=== PATIENT | female | born 1960 | race Hispanic/Latino ===

== ENCOUNTER 2016-09-06 07:50 | Emergency (ER) | payer OTHER ==
[2016-09-06 07:50] VITALS: BMI 25.7
[2016-09-06 08:08] VITALS: RESP 18; TEMP 97.7
[2016-09-06 08:18] LABS: ADD MANUAL DIFF? NO
[2016-09-06 08:26] LABS: BASO # 0.06 K/mm3 (0.0-2.0); EOS # 0.2 (0.0-0.7); EOS % 2.7 % (1.5-5.0); GRAN # 3.15 (1.4-6.5); GRAN % 50.7 % (50.0-68.0); HEMATOCRIT 41.2 % (36.0-48.0); LYMPH # 2.3 (1.2-3.4); LYMPH % 36.6 % (22.0-35.0); MEAN CELL VOLUME 93.4 fL (80.0-105.0); MEAN CORPUSCULAR HEMOGLOBIN 31.5 pg (25.0-35.0); MEAN CORPUSCULAR HGB CONC 33.7 g/dl (31.0-37.0); MEAN PLATELET VOLUME 10.5 fl (7.0-11.0); MONO # 0.6 (0.1-0.6); PLATELET COUNT 282 10^3/uL (120.0-450.0); WHITE BLOOD COUNT 6.2 10^3/ul (4.5-11.0)
[2016-09-06 08:34] LABS: INR 0.95 (0.93-1.08); PARTIAL THROMBOPLASTIN TIME 27.3 Seconds (23.7-30.8)
[2016-09-06 08:36] LABS: ALKALINE PHOSPHATASE 68 U/L (38-133); AST/SGOT 21 U/L (15-39); BLOOD UREA NITROGEN 23 mg/dL (7-21); CALCIUM 9.7 mg/dL (8.4-10.5); CARBON DIOXIDE 28 mmol/L (21-33); CHLORIDE 100 mmol/L (98-107); GFR AFRICAN-AMERICAN > 60; POTASSIUM 4.2 mmol/L (3.6-5.0); SODIUM 136 mmol/L (132-148)
[2016-09-06 08:40] LABS: BILIRUBIN,TOTAL 1.6 mg/dL (0.2-1.3)
[2016-09-06 08:41] LABS: ALT/SGPT 15 U/L (7-56); TOTAL PROTEIN 7.4 g/dL (5.8-8.3)
[2016-09-06 08:42] LABS: GLUCOSE,RANDOM 94 mg/dL (70-110); LIPASE 129 U/L (23-300)
[2016-09-06 08:43] LABS: ALB/GLOB RATIO 1.2 (1.1-1.8)
[2016-09-06] MEDS ORDERED: Pantoprazole 40 mg EC Tab PO STA (08:47)
[2016-09-06 08:56] LABS: TROPONIN I < 0.01 ng/mL
--- NOTE | 2016-09-06 09:36 | ED PDOC ---
Arrival/HPI - History of Present Illness Time/Duration: < week Symptom Onset: Gradual <Abelino Tang - Last Filed: 09/06/16 14:44> <Presley Best Jr. - Last Filed: 09/07/16 18:22> - General Chief Complaint: Chest Pain Time Seen by Provider: 09/06/16 08:21 - History of Present Illness Narrative History of Present Illness (Text): 09/06/16 09:32 56 y/o female with hx GERD presenting with complaints of midsternal chest discomfort extending into epigastrium. Patient notes her symptoms started a few days ago and have persisted over that time. Patient describes the discomfort as heaviness without radiation into jaw or arm. She denies associated diaphoresis, shortness of breath or n/v/d with her symptoms. Patient has a longstanding history of GERD and gastritis. She currently takes Zantac daily which has not provided relief. Patient has also used Carafate without relief of symptoms. Patient had a cardiac stress test in 2013 which was negative. She has not hx of DM, HTN, tobacco use or family history of early onset coronary disease. ( Abelino Tang) Past Medical History - Provider Review Nursing Documentation Reviewed: Yes - Infectious Disease Hx of Infectious Diseases: None - Cardiac Hx Pacemaker: No - Neurological Other/Comment: Tremor - Hematological/Oncological Hx Blood Transfusions: No Hx Blood Transfusion Reaction: No - Musculoskeletal/Rheumatological Hx Musculoskeletal Disorders: Yes - Gastrointestinal Hx Gastroesophageal Reflux: Yes - Psychiatric Hx Emotional Abuse: No Hx Physical Abuse: No Hx Substance Use: No - Surgical History Other/Comment: Benign lump removed from Left breastAdenocystic carcinoma removed from head. - Anesthesia Hx Anesthesia Reactions: Yes (DIFF WALKING X 1 PROCEDURE,AROUSAL ISSUE) Hx Malignant Hyperthermia: No - Suicidal Assessment Feels Threatened In Home Enviroment: No <Abelino Tang - Last Filed: 09/06/16 14:44> Family/Social History Family/Social History: No Known Family HX Smoking Status: Never Smoked Hx Alcohol Use: No Hx Substance Use: No Hx Substance Use Treatment: No <Abelino Tang - Last Filed: 09/06/16 14:44> Allergies/Home Meds <Abelino Tang - Last Filed: 09/06/16 14:44> <Presley Best Jr. - Last Filed: 09/07/16 18:22> Allergies/Adverse Reactions: Allergies No Known Allergies Allergy (Verified 09/06/16 08:11) Home Medications: Home Meds Medication Instructions Recorded Confirmed Pregabalin [Lyrica] 50 mg PO BID 10/16/14 09/06/16 Propranolol [Propranolol HCl] 10 mg PO TID PRN 08/20/15 09/06/16 Ranitidine HCl [Zantac] 150 mg PO BID 07/03/16 09/06/16 Review of Systems - Physician Review All systems were reviewed & negative as marked: Yes - Review of Systems Constitutional: absent: Fatigue, Fevers Eyes: Normal ENT: Normal Respiratory: absent: SOB, Cough, Wheezing Cardiovascular: Chest Pain. absent: Palpitations, SIERRA, Syncope Gastrointestinal: Abdominal Pain (epigastric ). absent: Diarrhea, Nausea, Vomiting Genitourinary Female: absent: Dysuria, Frequency, Hematuria Musculoskeletal: absent: Back Pain, Neck Pain Skin: absent: Rash, Pruritis, Skin Lesions Neurological: absent: Headache, Dizziness, Focal Weakness Endocrine: absent: Diaphoresis Psychiatric: Anxiety. absent: Depression <Abelino Tang - Last Filed: 09/06/16 14:44> Physical Exam Vital Signs Reviewed: Yes Temperature: Afebrile Blood Pressure: Normal Pulse: Regular Respiratory Rate: Normal Appearance: Positive for: Well-Appearing Pain Distress: None Mental Status: Positive for: Alert and Oriented X 3 - Systems Exam Head: Present: Atraumatic, Normocephalic Pupils: Present: PERRL Extroacular Muscles: Present: EOMI Conjunctiva: Present: Normal Mouth: Present: Moist Mucous Membranes Neck: Present: Normal Range of Motion Respiratory/Chest: Present: Clear to Auscultation, Good Air Exchange. No: Respiratory Distress Cardiovascular: Present: Regular Rate and Rhythm, Normal S1, S2 Abdomen: Present: Normal Bowel Sounds. No: Tenderness, Distention Upper Extremity: Present: Normal Inspection. No: Cyanosis, Edema Lower Extremity: Present: Normal Inspection, NORMAL PULSES. No: Edema, CALF TENDERNESS Neurological: Present: GCS=15, CN II-XII Intact, Speech Normal Skin: Present: Warm, Dry. No: Rashes Psychiatric: Present: Alert, Oriented x 3, Normal Insight, Normal Concentration <Abelino Tang - Last Filed: 09/06/16 14:44> Vital Signs Temp Pulse Resp BP Pulse Ox 09/06/16 14:39 92 H 18 128/80 98 09/06/16 12:24 82 18 118/70 98 09/06/16 10:23 95 H 18 122/79 97 09/06/16 07:54 97.7 F 68 18 147/87 97 Medical Decision Making <Abelino Tang - Last Filed: 09/06/16 14:44> - Lab Interpretations I have reviewed the lab results: Yes <Presley Best Jr. - Last Filed: 09/07/16 18:22> ED Course and Treatment: 09/06/16 09:38 56 y/o female with hx GERD, gastritis presenting with chest heaviness and epigastric discomfort. Patient has a longstanding hx of GERD treated with daily Zantac. Patient has no significant risk factors for cardiac disease. EKG does not reveal evidence of acute ischemia. Presentation is likely secondary to acute on chronic GERD. - Cardiac ISO - EKG - CBC - CMP - Aspirin 325mg - Protonix 40mg 09/06/16 14:44 Chest and epigastric discomfort is moderately improved with Protonix and Carafate. Troponins are negative x2. Lab results are grossly normal. Patient's presentation is secondary to acute on chronic gastric reflux. Patient will f/u with her GI, Dr. Mcneil and her PCP for continued management. (Abelino Tang ) . ATTENDING PHYSICIAN FOCUSED HISTORY & PHYSICAL EXAM NOTE: Patient seen and examined with resident. Came up with treatment and disposition plan with resident. The patient is a 56 year old female who comes to the emergency department for evaluation of chest discomfort which extends into the epigastric region. Additional HPI details as noted by resident. On our physical exam, Heart: RRR ; Lungs: CTA B/L. No acute findings on our physical exam. An EKG was ordered to rule out ACS. Patient given Protonix and Aspirin for the pain. EKG shows a NSR at [address]/T changes. Patient had 2 sets of negative cardiac enzymes. Patient is stable for discharge. Will discharge home. Results and plans were discussed with the patient, who expresses understanding. Patient in agreement with plan to discharged home. Patient is stable for discharge. Patient was instructed to follow up with physician/clinic in 1-2 days or return if symptoms worsen or new concerning symptoms arise. . (Presley Best Jr.) - Lab Interpretations Lab Results: 09/06/16 08:16 09/06/16 08:16 Lab Results 09/06/16 13:15: Troponin I < 0.01 09/06/16 08:16: WBC 6.2, RBC 4.41, Hgb 13.9, Hct 41.2, MCV 93.4, MCH 31.5, MCHC 33.7, RDW 13.0, Plt Count 282, MPV 10.5, Gran % 50.7, Lymph % (Auto) 36.6 H, [place] % (Auto) 9.0 H, Eos % (Auto) 2.7, Baso % (Auto) 1.0, Gran # 3.15, Lymph # 2.3, [place] # 0.6, Eos # 0.2, Baso # 0.06, PT 10.3, INR 0.95, APTT 27.3, Sodium 136, Potassium 4.2, Chloride 100, Carbon Dioxide 28, Anion Gap 12, BUN 23 H, Creatinine 0.7, Est GFR ( Amer) > 60, Est GFR (Non-Af Amer) > 60, Random Glucose 94, Calcium 9.7, Total Bilirubin 1.6 H, AST 21, ALT 15, Alkaline Phosphatase 68, Lactate Dehydrogenase 492, Total Creatine Kinase 26 L, Troponin I < 0.01, Total Protein 7.4, Albumin 4.1, Globulin 3.3, Albumin/Globulin Ratio 1.2, Lipase 129 - Medication Orders Current Medication Orders: Discontinued Medications Aspirin (Aspirin) 325 mg PO STAT STA Stop: 09/06/16 08:36 Last Admin: 09/06/16 08:47 Dose: 325 MG Pantoprazole Sodium (Protonix Ec Tab) 40 mg PO STAT STA Stop: 09/06/16 08:48 Last Admin: 09/06/16 08:52 Dose: 40 MG Sucralfate (Carafate Tab) 1 gm PO STAT STA Stop: 09/06/16 10:43 Last Admin: 09/06/16 10:46 Dose: 1 GM <Abelino Tang - Last Filed: 09/06/16 14:44> - Scribe Statement The provider has reviewed the documentation as recorded by the Scribe <Presley Best Jr. - Last Filed: 09/07/16 18:22> - Scribe Statement Armond Machuca Provider Scribe Attestation: All medical record entries made by the Scribe were at my direction and personally dictated by me. I have reviewed the chart and agree that the record accurately reflects my personal performance of the history, physical exam, medical decision making, and the department course for this patient. I have also personally directed, reviewed, and agree with the discharge instructions and disposition. (Presley Best Jr.) Disposition/Present on Arrival - Present on Arrival Any Indicators Present on Arrival: No History of DVT/PE: No History of Uncontrolled Diabetes: No Urinary Catheter: No History of Decub. Ulcer: No History Surgical Site Infection Following: None - Disposition Have Diagnosis and Disposition been Completed?: Yes Disposition Time: 14:47 <Abelino Tang - Last Filed: 09/06/16 14:44> <Presley Best Jr. - Last Filed: 09/07/16 18:22> - Disposition Diagnosis: Gastric reflux syndrome Disposition: HOME/ ROUTINE Condition: GOOD Discharge Instructions (ExitCare): Gastritis (ED) Additional Instructions: Please see your water sponger for evaluation your GERD. Please follow up with your family physician within one week. Continue to take Zantac daily and Caragate as needed for symptoms.
[2016-09-06 12:25] VITALS: O2SAT 98
[2016-09-06 14:40] VITALS: BP 128/80; PULSE 92
--- NOTE | 2016-09-06 17:29 | CARD ---
APPROVED REPORT EKG Measurement Heart [id number] <Conclusion> Normal sinus rhythm Normal ECG
== END 2016-09-06 14:48 | disposition home or self-care (01) ==
LOC: ED 07:50
DX: K21.9 Gastro-esophageal reflux disease without esophagitis (principal)

== ENCOUNTER 2016-11-27 06:00 | Day surgery (SDC) | payer OTHER ==
[2016-11-27] MEDS ORDERED: Propofol 10 mg/ml Inj (20 ML) ONE ×2 (07:20→07:50)
[2016-11-27] MEDS ORDERED: Midazolam 2 MG/2 ML VIAL ONE (07:20)
[2016-11-27] MEDS ORDERED: Succinylcholine 200 mg/10 ml Inj IV ONE (07:20)
[2016-11-27] MEDS ORDERED: Phenylephrine 10 mg/ml Inj ONE (07:20)
[2016-11-27] MEDS ORDERED: ePHEDrine 50 mg/ml Inj ONE (07:20)
[2016-11-27] MEDS ORDERED: Absorbable Gelatin Sponge Size 100 ONE (07:33)
[2016-11-27] MEDS ORDERED: Lidocaine 1%/Epinephrine 1:100000 30 ml vial ONE (07:33)
[2016-11-27] MEDS ORDERED: Thrombin Topical 5,000 IU Spray Kit ONE (07:34)
[2016-11-27] MEDS ORDERED: Remifentanil 2 MG PDS IV ONE (07:44)
[2016-11-27] MEDS ORDERED: Oxycodone/Acetaminophen 5/325 mg Tab PO PRN (10:14)
--- NOTE | 2016-11-27 10:22 | PCM.SURG1 ---
Surgeon's Initial Post Op Note - Surgeon's Notes Surgeon: analisa Crnp: stevie Type of Anesthesia: General Endo Pre-Operative Diagnosis: R L5 nerve root compression/radiculopathy Operative Findings: Large degen calcified synovial cyst Post-Operative Diagnosis: Same Operation Performed: Hemilaminotomy, decompression of R L5 root Specimen/Specimens Removed: Joint cyst Estimated Blood Loss: EBL {In ML}: 100 Blood Products Given: N/A Drains Used: No Drains Post-Op Condition: Good Date of Surgery/Procedure: 11/27/16 Time of Surgery/Procedure: 08:40
[2016-11-27] MEDS ORDERED: HYDROmorphone 0.5 mg/0.5 ml ISec ONE (10:28)
[2016-11-27] MEDS ORDERED: Lactated Ringer's 1,000 ML IV SCH (10:28)
[2016-11-27] MEDS ORDERED: HYDROmorphone 1 mg/ml ISec IVP PRN (10:28)
[2016-11-27] MEDS ORDERED: HYDROmorphone 0.5 mg/0.5 ml ISec IVP PRN (10:43)
[2016-11-27 11:37] VITALS: RESP 18; O2SAT 98
--- NOTE | 2016-11-27 11:51 | OP ---
PROCEDURE DATE: 11/27/2016 PREOPERATIVE DIAGNOSIS: Right L5 nerve root compression/radiculopathy. POSTOPERATIVE DIAGNOSIS: Right L5 nerve root compression/radiculopathy. OPERATION: Hemilaminotomy with decompression of the right L5 nerve root. SURGEON: Dom Miller MD. HOME MISSION WORKER: Bertram Rogers MD. ANESTHESIA: General endotracheal tube intubation. PROCEDURE: The patient was brought to the operating room, and general anesthesia was achieved. Intr avenous antibiotics were administered. Spinal cord monitoring leads were placed throughout the jeanette fisher's body. Realtime monitoring was done by biological lab technician in the room, and remote monitoring done by a marlene ireland as well. Sequential compression boots are placed on each of the patient's legs. The ronal camarillo was then gently transferred to the operating table and placed prone on a Harsh frame, keeping her abdomen and breasts free from pressure anteriorly. Care was taken to protect the elbows and knees fr om pressure points. A Steri-Drape was used to seal off the patient's perineal region from the operat cheryl field. Warming blanket was placed on the upper torso. The patient's back was sterilely prepped and draped. The level of the incision was noted under fluoroscopy and infiltrated with lidocaine wit h epinephrine. An incision was made sharply in the midline, taken down to subcutaneous tissue using sharp and blunt dissection. Hemostasis was achieved using electrocautery. The fascia was divided and stripped later ally off the spinous process and lamina on the right side and held back with a Anu retractor aroun d the 4-5 facet joint. The level was confirmed with fluoroscopic views. A hemilaminotomy was deya d out on the right side. We then brought the operating microscope brought onto the field, and the re st of the decompression done under microscopic visualization. As we started to come laterally, large yellowish degenerative firm-looking cyst appeared at the level of the 4-5 joint. This was causing a great deal of pressure against the traversing L5 root. Some of this was removed and sent for specim en, and the rest then removed with the Kerrison rongeurs, and the root was completely decompressed. After that was done, we could easily pass a Lenzburg tool along the course of the root and out the L5 foramina. Fluoroscopic view was taken with the Lenzburg tool out the foramina to demonstrate the leve l again. The surveillance system monitor noted that there had been increased EMG activity for the root preope ratively and that there was some improvement in that activity after the decompression. The area was copiously irrigated with antibiotic solution. Hemostasis was achieved with thrombinated Gelfoam powder, as well as some liquid with thrombin and Gelfoam pieces. The wound was then closed in layers with interrupted sutures of 0 Vicryl for the fascia. The subcutaneous tissue was copiously irrigated with antibiotic solution and closed in layers with interrupted sutures of 0 and 2-0 Vicryl , and the skin was approximated using a running subcuticular suture of 3-0 Monocryl. Dermabond was u sed to seal the closure. Once that was dry, the patient was gently transferred back onto her stretch er in supine position. She was awakened and extubated. She was taken to recovery room in stable con dition having tolerated the procedure well. Blood loss was around 100 mL, and she received 1500 mL o f crystalloid during the operation. She was actively moving all extremities at the time of her trans janina, and no permanent electrophysiologic abnormalities were noted at the completion of the case. Dom Miller MD cc: [id number] TT: 11/27/2016 11:51:44 jn
[2016-11-27 14:17] VITALS: BP 128/76; PULSE 73; TEMP 98
--- NOTE | 2016-12-02 13:50 | RAD ---
PROCEDURE: Fluoroscopy up to 1 hour HISTORY: DECOMPRESSION LUMBAR RT NERVE ROOT COMPARISON: TECHNIQUE: Fluoroscopy was provided in the operating room. 6 seconds of fluoroscopy time were utilized. A single lateral film of the lumbar spine was submitted FINDINGS: The study shows surgical instruments just below the L4-5 disc level. IMPRESSION: As above
== END 2016-11-27 13:50 | disposition home or self-care (01) ==
LOC: SDS 06:00
PROVIDERS: ATTEND Orthopaedic Surgery Orthopaedic Surgery of the Spine
DX: G54.4 Lumbosacral root disorders, not elsewhere classified (principal); M54.16 Radiculopathy, lumbar region; M71.38 Other bursal cyst, other site
CPT/HCPCS: 36415; 63030; 86850; 86900; 88304; 88311; 95941; J0330; J0690; J1170 ×2; J1885; J2001; J2250; J2370; J2405; J2704; J3010; J7120 ×2

== ENCOUNTER 2017-02-01 19:53 | Emergency (ER) | payer OTHER ==
[2017-02-01 19:53] VITALS: BMI 25.7
[2017-02-01] MEDS ORDERED: Sodium Chloride 0.9% 1,000 ML IV STA (20:22)
--- NOTE | 2017-02-01 20:33 | ED PDOC ---
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 She reports that the pain started yesterday and then worsened today. She reports that while at work today she experienced acute nausea, was diaphoretic, and felt like she needed to have a large bowel movement. Patient then experienced a large bowel movement, prompting her to come to the emergency department out of concern. Patient notes that she has been recently stressed out at work. Patient denies any recent travel outside of the [place] (except for [facility]), any recent antibiotic use, any past surgical history. Symptom Onset: Gradual Symptom Course: Unchanged Activities at Onset: Light Context: Home Past Medical History - Provider Review Nursing Documentation Reviewed: Yes - Infectious Disease Hx of Infectious Diseases: None - Cardiac Hx Pacemaker: No - Neurological Hx Paralysis: No - Hematological/Oncological Hx Blood Transfusions: No Hx Blood Transfusion Reaction: No - Musculoskeletal/Rheumatological Hx Musculoskeletal Disorders: Yes - Gastrointestinal Hx Gastroesophageal Reflux: Yes - Psychiatric Hx Emotional Abuse: No Hx Physical Abuse: No Hx Substance Use: No - Surgical History Other/Comment: Benign lump removed from Left breastAdenocystic carcinoma removed from head. - Anesthesia Hx Anesthesia Reactions: Yes (DIFF WALKING X 1 PROCEDURE,AROUSAL ISSUE) Hx Malignant Hyperthermia: No - Suicidal Assessment Feels Threatened In Home Enviroment: No Family/Social History - Physician Review Nursing Documentation Reviewed: Yes Family/Social History: No Known Family HX Smoking Status: Never Smoked Hx Alcohol Use: No Hx Substance Use: No Hx Substance Use Treatment: No Allergies/Home Meds Allergies/Adverse Reactions: Allergies No Known Allergies Allergy (Verified 09/06/16 08:11) Home Medications: Home Meds Medication Instructions Recorded Confirmed Pregabalin [Lyrica] 50 mg PO BID 10/16/14 11/27/16 Propranolol [Propranolol HCl] 10 mg PO TID PRN 08/20/15 11/27/16 Ranitidine HCl [Zantac] 150 mg PO BID 07/03/16 11/27/16 Naproxen Sodium [Aleve] 220 mg PO BID PRN 11/20/16 11/27/16 Vit B12/Levomefolate/Vit B6/B2 1 tab PO DAILY 11/20/16 11/27/16 [Cerefolin 1 mg-5.635 mg-50 mg-5 mg] Review of Systems - Physician Review All systems were reviewed & negative as marked: Yes - Review of Systems Constitutional: absent: Fevers Eyes: absent: Vision Changes ENT: absent: Hearing Changes Respiratory: absent: SOB, Cough Cardiovascular: absent: Chest Pain, Palpitations, Edema, Calf Pain, SIERRA, Orthopnea, Syncope Gastrointestinal: Abdominal Pain, Stool Changes, Diarrhea, Nausea. absent: Constipation Genitourinary Female: absent: Dysuria, Frequency, Hematuria, Urine Output Changes, Vaginal Bleeding, Vaginal Discharge Musculoskeletal: absent: Arthralgias, Back Pain Skin: absent: Pruritis Neurological: absent: Headache Endocrine: Diaphoresis Hemo/Lymphatic: absent: Adenopathy Psychiatric: absent: Anxiety Physical Exam Vital Signs Temp Pulse Resp BP Pulse Ox 02/01/17 22:56 82 16 134/82 100 02/01/17 20:54 97.8 F 71 16 141/90 100 Temperature: Afebrile Blood Pressure: Normal Pulse: Regular Respiratory Rate: Normal Appearance: Positive for: Well-Appearing, Non-Toxic, Comfortable Pain Distress: None Mental Status: Positive for: Alert and Oriented X 3 - Systems Exam Head: Present: Atraumatic, Normocephalic Pupils: Present: PERRL Extroacular Muscles: Present: EOMI Conjunctiva: Present: Normal Mouth: Present: Moist Mucous Membranes Neck: Present: Normal Range of Motion Respiratory/Chest: Present: Clear to Auscultation, Good Air Exchange. No: Respiratory Distress, Accessory Muscle Use Cardiovascular: Present: Regular Rate and Rhythm, Normal S1, S2. No: Murmurs Abdomen: Present: Normal Bowel Sounds. No: Tenderness, Distention, Peritoneal Signs Back: Present: Normal Inspection Upper Extremity: Present: Normal Inspection. No: Cyanosis, Edema Lower Extremity: Present: Normal Inspection. No: Edema Neurological: Present: GCS=15, CN II-XII Intact, Speech Normal Skin: Present: Warm, Dry, Normal Color. No: Rashes Psychiatric: Present: Alert, Oriented x 3, Normal Insight, Normal Concentration Medical Decision Making ED Course and Treatment: 02/01/17 20:22 Impression: 56 year old female complaining of acute nausea, diaphoresis, and a large bowel movement today. Differential Diagnosis included but are not limited to: Plan: -- Urinalysis -- Labs -- Zofran -- Reassess and disposition Prior Visits: Notes and results from previous visits were reviewed. Patient last seen in the ED on 08/27/16 for midsternal chest discomfort extending into epigastrium for a few days. Patient was discharged home. Progress Notes: 02/01/17 20:51 EKG shows NSR at 67bpm with normal intervals and no ST changes 02/01/17 21:27 Labs grossly normal. On reevaluation, patient has LLQ tenderness on exam. CT ordered 02/01/17 23:31 CT shows "Stomach and bowel: Mural thickening is identified within the rectosigmoid colon, with trace surrounding inflammatory change, findings consistent with acute/early diverticulitis. Peritoneum: As above. Lymph nodes: No pathologically enlarged lymph nodes. Vasculature: Unremarkable. Bones: No acute fracture 02/01/17 23:36 Patient reports that she wants to go home and do trial of outpatient antibiotics. She has wbc, is tolerating po, has normal vitals and denies severe pain. She was given detailed return instructions. - Lab Interpretations Lab Results: 02/01/17 20:48 02/01/17 20:48 Lab Results 02/01/17 20:48: Sodium 144, Potassium 4.4, Chloride 106, Carbon Dioxide 26, Anion Gap 16, BUN 26 H, Creatinine 0.6, Est GFR ( Amer) > 60, Est GFR ( Non-Af Amer) > 60, Random Glucose 116 H, Calcium 10.0, Phosphorus 4.6 H, Magnesium 1.9, Total Bilirubin 1.2, AST 17, ALT 27, Alkaline Phosphatase 66, Total Protein 6.8, Albumin 4.3, Globulin 2.5, Albumin/Globulin Ratio 1.7, Lipase 130 02/01/17 20:48: Urine Color Yellow, Urine Appearance Clear, Urine pH 6.0, Ur Specific [place] >= 1.030, Urine Protein Trace H, Urine Glucose (UA) Negative, Urine Ketones Negative, Urine Blood Negative, Urine Nitrate Negative, Urine Bilirubin Negative, Urine Urobilinogen 0.2, Ur Leukocyte Esterase Negative, Urine RBC 0 - 2, Urine WBC 0 - 2, Ur Epithelial Cells 3 - 4 02/01/17 20:48: WBC 7.8 D, RBC 4.72, Hgb 15.0, Hct 43.7, MCV 92.6, MCH 31.8, MCHC 34.3, RDW 12.9, Plt Count 309, MPV 10.3, Gran % 73.5 H, Lymph % (Auto) 19.5 L, [place] % (Auto) 5.0, Eos % (Auto) 1.4 L, Baso % (Auto) 0.6, Gran # 5.69, Lymph # 1.5, [place] # 0.4, Eos # 0.1, Baso # 0.05 I have reviewed the lab results: Yes - RAD Interpretation Radiology Orders: 02/01/17 21:27 ABD & PELVIS IV CONTRAST ONLY [CT] Stat - Medication Orders Current Medication Orders: Discontinued Medications Ciprofloxacin (Cipro) 500 mg PO STAT STA PRN Reason: Protocol Stop: 02/01/17 23:35 Last Admin: 02/01/17 23:50 Dose: 500 mg Famotidine (Pepcid) 20 mg IVP STAT STA Stop: 02/01/17 20:28 Last Admin: 02/01/17 20:51 Dose: 20 mg Sodium Chloride (Sodium Chloride 0.9%) 1,000 mls @ 999 mls/hr IV .Q1H1M STA Stop: 02/01/17 21:22 Last Admin: 02/01/17 20:51 Dose: 999 mls/hr Iohexol (Omnipaque 350 100 Ml) Confirm Administered Dose 350 mg .ROUTE .STK-MED ONE Stop: 02/01/17 22:08 Ketorolac Tromethamine (Toradol) 30 mg IVP STAT STA Stop: 02/01/17 20:28 Last Admin: 02/01/17 20:51 Dose: 30 mg Re-Assess: [facility] Pain Assessment Document 02/01/17 21:51 AL (Rec: 02/01/17 23:07 [facility]-[id number]) Pain Reassessment Is this a pain reassessment? Yes Sleep Is patient sleeping during reassessment? No Presence of Pain Presence of Pain No Metronidazole (Flagyl) 500 mg PO STAT STA PRN Reason: Protocol Stop: 02/01/17 23:35 Last Admin: 02/01/17 23:50 Dose: 500 mg Ondansetron HCl (Zofran Inj) 4 mg IVP STAT STA Stop: 02/01/17 20:23 Last Admin: 02/01/17 20:51 Dose: 4 mg - Scribe Statement The provider has reviewed the documentation as recorded by the Gerson Herron Provider Scribe Attestation: All medical record entries made by the Scribe were at my direction and personally dictated by me. I have reviewed the chart and agree that the record accurately reflects my personal performance of the history, physical exam, medical decision making, and the department course for this patient. I have also personally directed, reviewed, and agree with the discharge instructions and disposition. Disposition/Present on Arrival - Present on Arrival Any Indicators Present on Arrival: No History of DVT/PE: No History of Uncontrolled Diabetes: No Urinary Catheter: No History Surgical Site Infection Following: None - Disposition Have Diagnosis and Disposition been Completed?: Yes Diagnosis: Diverticulitis Disposition: HOME/ ROUTINE Disposition Time: 23:38 Patient Plan: Discharge Condition: GOOD Discharge Instructions (ExitCare): Diverticulitis (ED) Additional Instructions: Follow-up with PMD within 2 days. Follow-up with GI. Take full course of antibiotics. Return to ED immediately if condition worsens- any worsening pain , fever, or vomiting Prescriptions: Ciprofloxacin [Cipro] 500 mg PO BID #20 tab Metronidazole [Flagyl] 500 mg PO TID #30 tab Referrals: Preet Salazar MD [Primary Care Provider] - Follow up with primary Roseanne Mcneil MD [Medical Doctor] - Follow up with primary Forms: WORK NOTE
[2017-02-01 20:57] VITALS: RESP 16; TEMP 97.8; O2SAT 100
[2017-02-01 20:59] LABS: BASO # 0.05 K/mm3 (0.0-2.0); BASO % 0.6 % (0.0-3.0); EOS # 0.1 (0.0-0.7); EOS % 1.4 % (1.5-5.0); GRAN # 5.69 (1.4-6.5); GRAN % 73.5 % (50.0-68.0); HEMATOCRIT 43.7 % (36.0-48.0); LYMPH # 1.5 (1.2-3.4); LYMPH % 19.5 % (22.0-35.0); MEAN CELL VOLUME 92.6 fl (80.0-105.0); MEAN CORPUSCULAR HEMOGLOBIN 31.8 pg (25.0-35.0); MEAN CORPUSCULAR HGB CONC 34.3 g/dl (31.0-37.0); MEAN PLATELET VOLUME 10.3 fl (7.0-11.0); MONO # 0.4 (0.1-0.6); RED CELL DISTRIBUTION WIDTH 12.9 % (11.5-14.5); URINE BILIRUBIN NEGATIVE (NEGATIVE); URINE BLOOD NEGATIVE (NEGATIVE); URINE GLUCOSE (UA) NEGATIVE (NEGATIVE); URINE KETONE NEGATIVE (NEGATIVE); URINE LEUKOCYTE ESTERASE NEGATIVE Leu/uL (NEGATIVE); URINE PROTEIN TRACE mg/dL (<30 mg/dL); URINE UROBILINOGEN 0.2 E.U./dL (<1 E.U./dL); WHITE BLOOD COUNT 7.8 10^3/ul (4.5-11.0)
[2017-02-01 21:00] LABS: URINE APPEARANCE CLEAR (CLEAR); URINE COLOR YELLOW (YELLOW)
[2017-02-01 21:02] LABS: URINE RBC 0 - 2 /hpf (0-2); URINE WBC 0 - 2 /hpf (0-6)
[2017-02-01 21:07] LABS: ALB/GLOB RATIO 1.7 (1.1-1.8); ALKALINE PHOSPHATASE 66 U/L (38-133); ALT/SGPT 27 U/L (7-56); AST/SGOT 17 U/L (15-39); BILIRUBIN,TOTAL 1.2 mg/dL (0.2-1.3); BLOOD UREA NITROGEN 26 mg/dL (7-21); CARBON DIOXIDE 26 mmol/L (21-33); CHLORIDE 106 mmol/L (98-107); GFR AFRICAN-AMERICAN > 60; GLUCOSE,RANDOM 116 mg/dL (70-110); LIPASE 130 U/L (23-300); MAGNESIUM 1.9 mg/dL (1.7-2.2); PHOSPHOROUS 4.6 mg/dL (2.5-4.5); POTASSIUM 4.4 mmol/L (3.6-5.0); SODIUM 144 mmol/L (132-148); TOTAL PROTEIN 6.8 g/dL (5.8-8.3)
[2017-02-01] MEDS ORDERED: Iohexol 350 MG/100 ML VIAL ONE (22:07)
[2017-02-01 22:56] VITALS: BP 134/82; PULSE 82
--- NOTE | 2017-02-01 23:29 | CT ---
EXAM: CT Abdomen and Pelvis With Intravenous Contrast CLINICAL HISTORY: 56 years old, female; Pain; Abdominal pain; Localized; Left lower quadrant (llq); Additional info: Llq pain TECHNIQUE: Axial computed tomography images of the abdomen and pelvis with intravenous contrast. All CT scans at this facility use one or more dose reduction techniques, viz.: automated exposure control; ma/kV adjustment per patient size (including targeted exams where dose is matched to indication; i.e. head); or iterative reconstruction technique. Coronal and sagittal reformatted images were created and reviewed. CONTRAST: 96 mL of OMNI 350 administered intravenously. COMPARISON: None FINDINGS: Lower thorax: Bibasilar atelectasis. ABDOMEN: Liver: No acute findings. Gallbladder and bile ducts: The gallbladder is decompressed, without calcified stones. No significant intra- or extrahepatic biliary ductal dilation. Pancreas: Enhances homogeneously. No ductal dilation. No discrete mass. Spleen: No acute findings. Adrenals: No acute findings. Kidneys and ureters: No acute findings. No hydronephrosis or obstructing renal calculi. A nonobstructing 10 mm stone is identified within the lower pole the left kidney No discrete solid mass. PELVIS: Bladder: No acute findings. Reproductive: No acute findings. Appendix: The appendix is not definitively visualized, however no pericecal inflammatory changes identified to suggest the presence of acute appendicitis. ABDOMEN and PELVIS: Stomach and bowel: Mural thickening is identified within the rectosigmoid colon, with trace surrounding inflammatory change, findings consistent with acute/early diverticulitis. Peritoneum: As above. Lymph nodes: No pathologically enlarged lymph nodes. Vasculature: Unremarkable. Bones: No acute fracture. IMPRESSION: Findings consistent with acute/early diverticulitis, as detailed above.
--- NOTE | 2017-02-02 15:40 | CARD ---
APPROVED REPORT EKG Measurement Heart [id number] [id number] <Conclusion> Normal sinus rhythm Normal ECG
== END 2017-02-02 00:05 | disposition home or self-care (01) ==
LOC: ED 19:53
DX: K57.92 Diverticulitis of intestine, part unspecified, without perforation or abscess without bleeding (principal); K21.9 Gastro-esophageal reflux disease without esophagitis
CPT/HCPCS: 74177; 80053; 81001; 83690; 83735; 84100; 85025; 93005; 96374; 96375; 99285; J1885; J2405; J7040; Q9967

== ENCOUNTER 2017-03-11 20:07 | Emergency (ER) | payer OTHER ==
[2017-03-11 20:15] VITALS: RESP 17; TEMP 97.9; O2SAT 98; BMI 25.4
[2017-03-11 20:20] VITALS: BP 158/96; PULSE 79
[2017-03-11] MEDS ORDERED: TDAP Vaccine 0.5 mL Syr IM ONE (20:40)
--- NOTE | 2017-03-11 21:04 | ED PDOC ---
Arrival/HPI - General Chief Complaint: Needle Stick Time Seen by Provider: 03/11/17 20:34 Historian: Patient - History of Present Illness Narrative History of Present Illness (Text): 03/11/17 20:40 Yudi Rivera is a 56 year old female who presents to the emergency department with puncture from a dirty needle to her right finger prior to arrival. Patient denies any fever, chills, chest pain, shortness of breath, nausea, vomiting, diarrhea, urinary symptoms, back pain, neck pain, headache, dizziness, or any other complaints. Time/Duration: Prior to Arrival Symptom Onset: Sudden Symptom Course: Improving Activities at Onset: Light Context: Home Past Medical History - Provider Review Nursing Documentation Reviewed: Yes - Infectious Disease Hx of Infectious Diseases: None - Cardiac Hx Pacemaker: No - Pulmonary Hx Respiratory Disorders: No - Neurological Hx Neurological Disorder: No Hx Paralysis: No - HEENT Hx HEENT Disorder: No - Renal Hx Renal Disorder: No - Endocrine/Metabolic Hx Endocrine Disorders: No - Hematological/Oncological Hx Blood Disorders: No Hx Blood Transfusions: No Hx Blood Transfusion Reaction: No - Integumentary Hx Dermatological Disorder: No - Musculoskeletal/Rheumatological Hx Musculoskeletal Disorders: Yes Other/Comment: decompress L4 - Gastrointestinal Hx Gastroesophageal Reflux: Yes - Genitourinary/Gynecological Hx Genitourinary Disorders: No - Psychiatric Hx Emotional Abuse: No Hx Physical Abuse: No Hx Substance Use: No - Surgical History Other/Comment: Benign lump removed from Left breastAdenocystic carcinoma removed from head. - Anesthesia Hx Anesthesia Reactions: Yes (DIFF WALKING X 1 PROCEDURE,AROUSAL ISSUE) Hx Malignant Hyperthermia: No - Suicidal Assessment Feels Threatened In Home Enviroment: No Family/Social History - Physician Review Nursing Documentation Reviewed: Yes Family/Social History: No Known Family HX Smoking Status: Never Smoked Hx Alcohol Use: No Hx Substance Use: No Hx Substance Use Treatment: No Allergies/Home Meds Allergies/Adverse Reactions: Allergies No Known Allergies Allergy (Verified 03/11/17 20:15) Home Medications: Home Meds Medication Instructions Recorded Confirmed Propranolol [Propranolol HCl] 10 mg PO TID PRN 08/20/15 03/11/17 Ranitidine HCl [Zantac] 150 mg PO BID 07/03/16 03/11/17 Vit B12/Levomefolate/Vit B6/B2 1 tab PO DAILY 11/20/16 03/11/17 [Cerefolin 1 mg-5.635 mg-50 mg-5 mg] Review of Systems - Physician Review All systems were reviewed & negative as marked: Yes - Review of Systems Constitutional: absent: Fevers, Night Sweats Eyes: absent: Vision Changes ENT: absent: Hearing Changes Respiratory: absent: SOB, Cough Cardiovascular: absent: Chest Pain Gastrointestinal: absent: Abdominal Pain Genitourinary Female: absent: Dysuria, Frequency Musculoskeletal: absent: Arthralgias Skin: Other (puncture to right index finger) Neurological: absent: Headache Endocrine: absent: Diaphoresis Hemo/Lymphatic: absent: Adenopathy Physical Exam Vital Signs Reviewed: Yes Vital Signs Temp Pulse Resp BP Pulse Ox 03/11/17 20:17 97.9 F 79 17 158/96 H 98 03/11/17 20:15 97.9 F 77 17 153/96 H 98 Temperature: Afebrile Blood Pressure: Hypertensive Pulse: Regular Respiratory Rate: Normal Appearance: Positive for: Well-Appearing, Non-Toxic, Comfortable Pain Distress: None Mental Status: Positive for: Alert and Oriented X 3 - Systems Exam Head: Present: Atraumatic, Normocephalic Pupils: Present: PERRL Extroacular Muscles: Present: EOMI Conjunctiva: Present: Normal Mouth: Present: Moist Mucous Membranes Neck: Present: Normal Range of Motion Respiratory/Chest: Present: Clear to Auscultation, Good Air Exchange. No: Respiratory Distress, Accessory Muscle Use Cardiovascular: Present: Regular Rate and Rhythm, Normal S1, S2. No: Murmurs Abdomen: Present: Normal Bowel Sounds. No: Tenderness, Distention, Peritoneal Signs Back: Present: Normal Inspection Upper Extremity: Present: Normal Inspection. No: Cyanosis, Edema Lower Extremity: Present: Normal Inspection. No: Edema Neurological: Present: GCS=15, CN II-XII Intact, Speech Normal Skin: Present: Other (puncture to right index finger) Psychiatric: Present: Alert, Oriented x 3, Normal Insight, Normal Concentration Medical Decision Making ED Course and Treatment: 03/11/17 20:35 Impression: 56 year old female presents with a puncture to her right finger from a dirty needle prior to arrival. Differential Diagnosis included but are not limited to: Needle Puncture Plan: -- Boostrix Shot -- Reassess and disposition Prior Visits: Notes and results from previous visits were reviewed. Patient last seen in the ED on 02/01/17 for suprapubic pain for 2 days. Patient was discharged home. Progress Notes: - Lab Interpretations Lab Results: Lab Results 03/11/17 20:53: HIV-1 Ab Rapid Screen Non reactive - Medication Orders Current Medication Orders: Discontinued Medications Tetanus/Reduced Diphtheria/Acell Pertussis (Boostrix Vaccine Inj) 0.5 ml IM .ONCE ONE Stop: 03/11/17 20:41 Last Admin: 03/11/17 20:49 Dose: 0.5 ml MAR Immunization Data Document 03/11/17 20:49 SC (Rec: 03/11/17 20:50 SC [id number]) Immunization Data Opt out of sending immunization data to No respository? Suppress immunization data to other No providers from registry? Vaccine Eligibility Yes Vaccine Information Sheet Given Yes Informed Consent Given Yes Vaccine Lot Number [id number] Site Given Left Deltoid Route Intramuscular Immunization Units ml - Scribe Statement The provider has reviewed the documentation as recorded by the Gerson Herron Provider Scribe Attestation: All medical record entries made by the Scribe were at my direction and personally dictated by me. I have reviewed the chart and agree that the record accurately reflects my personal performance of the history, physical exam, medical decision making, and the department course for this patient. I have also personally directed, reviewed, and agree with the discharge instructions and disposition. Disposition/Present on Arrival - Present on Arrival Any Indicators Present on Arrival: No History of DVT/PE: No History of Uncontrolled Diabetes: No Urinary Catheter: No History of Decub. Ulcer: No History Surgical Site Infection Following: None - Disposition Have Diagnosis and Disposition been Completed?: Yes Diagnosis: Needle stick injury of finger Disposition: HOME/ ROUTINE Disposition Time: 21:00 Condition: GOOD Discharge Instructions (ExitCare): Needle Stick Injuries (ED) Additional Instructions: follow up with employee health Forms: [employer] (Liberian)
== END 2017-03-11 21:05 | disposition home or self-care (01) ==
LOC: ED 20:07
DX: S61.230A Puncture wound without foreign body of right index finger without damage to nail, initial encounter (principal); W46.1XXA Contact with contaminated hypodermic needle, initial encounter; Z23 Encounter for immunization

== ENCOUNTER 2018-03-22 07:49 | Day surgery (SDC) | payer OTHER, BC ==
[2018-03-22] MEDS ORDERED: Propofol 10 mg/ml Inj (20 ML) ONE (09:42)
[2018-03-22] MEDS ORDERED: Sodium Chloride 0.9% 1,000 ML IV SCH (10:30)
[2018-03-22 11:57] VITALS: BP 132/77; PULSE 62; RESP 17; TEMP 97.8; O2SAT 98
== END 2018-03-22 11:44 | disposition home or self-care (01) ==
LOC: ENDO 07:49
PROVIDERS: ATTEND Internal Medicine Gastroenterology
DX: K21.0 Gastro-esophageal reflux disease with esophagitis (principal); K44.9 Diaphragmatic hernia without obstruction or gangrene; K29.50 Unspecified chronic gastritis without bleeding
CPT/HCPCS: 43239; 88305; 88312; 88342; J2001; J2704; J7030 ×2

== ENCOUNTER 2018-08-11 08:45 | Emergency (ER) | payer OTHER, BC ==
[2018-08-11 08:45] VITALS: BMI 25.4
[2018-08-11 08:58] VITALS: TEMP 98
--- NOTE | 2018-08-11 09:15 | ED PDOC ---
Arrival/HPI - General Chief Complaint: Chest Pain Time Seen by Provider: 08/11/18 08:57 Historian: Patient - History of Present Illness Narrative History of Present Illness (Text): 08/11/18 09:18 A 58 year old female, whose past medical history includes GERD and menopause, presents to the emergency department complaining of non-radiating right-side chest pain starting 03:00 today. Patient is a worker here in the hospital. Patie nt reports pain worsens when breathing in and with movement. Patient denies any shortness of breath, nausea, vomiting, diaphoresis, dizziness, back pain, or any other complaints at this time. Denies any history of smoking, is an occasional. 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 Worse with direct palpation movement and deep breathing. No dyspnea. No diaphoresis. No dizziness or lightheadedness. No abdominal pain nausea or vomiting. Past Medical History - Provider Review Nursing Documentation Reviewed: Yes - Infectious Disease Hx of Infectious Diseases: None - Reproductive Menopause: Yes - Cardiac Hx Pacemaker: No - Pulmonary Hx Respiratory Disorders: No - Neurological Hx Paralysis: No - HEENT Hx HEENT Disorder: No - Renal Hx Renal Disorder: No - Endocrine/Metabolic Hx Endocrine Disorders: No - Hematological/Oncological Hx Blood Transfusions: No Hx Blood Transfusion Reaction: No - Integumentary Hx Dermatological Disorder: No - Musculoskeletal/Rheumatological Hx Musculoskeletal Disorders: Yes - Gastrointestinal Hx Gastroesophageal Reflux: Yes Hx Gastrointestinal Ulcer: Yes - Genitourinary/Gynecological Hx Genitourinary Disorders: No - Psychiatric Hx Emotional Abuse: No Hx Physical Abuse: No Hx Substance Use: No - Surgical History Other/Comment: Ca removed from scalp. Hemorrhoidectomy - Anesthesia Hx Anesthesia Reactions: Yes ( PROCEDURE,AROUSAL ISSUE) Hx Malignant Hyperthermia: No - Suicidal Assessment Feels Threatened In Home Enviroment: No Family/Social History - Physician Review Nursing Documentation Reviewed: Yes Family/Social History: No Known Family HX Smoking Status: Never Smoked Hx Alcohol Use: No Hx Substance Use: No Hx Substance Use Treatment: No Allergies/Home Meds Allergies/Adverse Reactions: Allergies No Known Allergies Allergy (Verified 08/11/18 08:52) Home Medications: Home Meds Medication Instructions Recorded Confirmed Propranolol [Propranolol HCl] 10 mg PO TID PRN 08/20/15 08/11/18 Ranitidine HCl [Zantac] 150 mg PO BID 07/03/16 08/11/18 Vit B12/Levomefolate/Vit B6/B2 1 tab PO DAILY 11/20/16 08/11/18 [Cerefolin 1 mg-5.635 mg-50 mg-5 mg] Sucralfate [Carafate] 1 gm PO HS PRN 03/20/18 08/11/18 Review of Systems - Physician Review All systems were reviewed & negative as marked: Yes - Review of Systems Constitutional: absent: Fatigue, Fevers Respiratory: absent: SOB, Cough, Wheezing Cardiovascular: Chest Pain (non-radiating right-side chest pain). absent: Palpitations, Syncope Gastrointestinal: absent: Abdominal Pain, Constipation, Diarrhea, Nausea, Vomiting Musculoskeletal: absent: Back Pain Neurological: absent: Headache, Dizziness, Focal Weakness Endocrine: absent: Diaphoresis Physical Exam Vital Signs Reviewed: Yes Vital Signs Temp Pulse Resp BP Pulse Ox 08/11/18 08:54 98 F 87 18 145/98 H 100 Temperature: Afebrile Blood Pressure: Normal Pulse: Regular Respiratory Rate: Normal Appearance: Positive for: Well-Appearing, Non-Toxic, Comfortable Pain Distress: None Mental Status: Positive for: Alert and Oriented X 3 - Systems Exam Head: Present: Atraumatic, Normocephalic Pupils: Present: PERRL Extroacular Muscles: Present: EOMI Conjunctiva: Present: Normal Mouth: Present: Moist Mucous Membranes Pharnyx: No: ERYTHEMA, EXUDATE, TONSILS ENLARGED Neck: Present: Normal Range of Motion Respiratory/Chest: Present: Clear to Auscultation, Good Air Exchange, Tender to Palpation, Other (right sternum tenderness, with reproducible pain). No: Respiratory Distress, Accessory Muscle Use Cardiovascular: Present: Regular Rate and Rhythm, Normal S1, S2. No: Murmurs Abdomen: No: Tenderness, Distention, Peritoneal Signs Back: Present: Normal Inspection Upper Extremity: Present: Normal Inspection. No: Cyanosis, Edema Lower Extremity: Present: Normal Inspection. No: Edema, CALF TENDERNESS, Alice's Sign, Tenderness, Swelling Neurological: Present: GCS=15, CN II-XII Intact, Speech Normal, Motor Func Grossly Intact Skin: Present: Warm, Dry, Normal Color. No: Rashes Psychiatric: Present: Alert, Oriented x 3, Normal Insight, Normal Concentration Medical Decision Making ED Course and Treatment: 08/11/18 09:21 Impression: 58 year old female with non-radiating right-side chest pain. Plan: -- EKG -- Chest X-ray -- Toradol -- Labs -- Reassess and disposition Progress Notes: 08/11/18 09:51 EKG shows normal sinus rhythm rate approximately [address] or T wave changes. 08/11/18 10:10 Pain is improved, but not gone, post Toradol. 08/11/18 10:33 Workup is unremarkable. Patient is feeling better. This clearly appears to be a musculoskeletal problem. Discharged home accompanied by her . Prescription for Naprosyn and a note for work given. Follow-up with PMD. Follow-up in ER as needed. - RAD Interpretation Radiology Orders: 08/11/18 09:12 CHEST PORTABLE [RAD] Stat Chest one view as read by the radiologist shows no infiltrate effusion or cardiomegaly. Residential Driver: Radiologist - Medication Orders Current Medication Orders: Discontinued Medications Ketorolac Tromethamine (Toradol) 15 mg IVP ONCE ONE Stop: 08/11/18 09:14 - Scribe Statement The provider has reviewed the documentation as recorded by the Gerson Peters Provider Scribe Attestation: All medical record entries made by the Scribe were at my direction and personally dictated by me. I have reviewed the chart and agree that the record accurately reflects my personal performance of the history, physical exam, medical decision making, and the department course for this patient. I have also personally directed, reviewed, and agree with the discharge instructions and disposition. Disposition/Present on Arrival - Present on Arrival Any Indicators Present on Arrival: No History of DVT/PE: No History of Uncontrolled Diabetes: No Urinary Catheter: No History of Decub. Ulcer: No History Surgical Site Infection Following: None - Disposition Have Diagnosis and Disposition been Completed?: Yes Diagnosis: Costochondritis Disposition: HOME/ ROUTINE Disposition Time: 10:34 Patient Plan: Discharge Condition: IMPROVED Discharge Instructions (ExitCare): Costochondritis (DC) Additional Instructions: Follow-up with PMD. Follow-up in ER as needed. Prescriptions: Naproxen [Naprosyn] 500 mg PO BID #14 tab Referrals: Preet Salazar MD [Primary Care Provider] - Follow up with primary Forms: [employer] (Nepali), WORK NOTE
[2018-08-11 09:53] LABS: BASO # 0.04 {null, K/mm3} (0.0-2.0); BASO % 0.8 % (0.0-3.0); EOS # 0.1 (0.0-0.7); EOS % 2.5 % (1.5-5.0); HEMOGLOBIN 13.1 g/dL (12.0-16.0); LYMPH # 2.1 (1.2-3.4); LYMPH % 43.1 % (22.0-35.0); MEAN CELL VOLUME 92.1 fl (80.0-105.0); MEAN CORPUSCULAR HEMOGLOBIN 30.4 pg (25.0-35.0); MEAN PLATELET VOLUME 9.9 fl (7.0-11.0); MONO # 0.4 (0.1-0.6); MONO % 7.5 % (1.0-6.0); RBC 4.31 {null, 10^6/uL} (3.5-6.1); RED CELL DISTRIBUTION WIDTH 13.1 % (11.5-14.5); WHITE BLOOD COUNT 4.8 {null, 10^3/uL} (4.5-11.0)
[2018-08-11 10:02] LABS: ALB/GLOB RATIO 1.4 (1.1-1.8); ALBUMIN 4.5 g/dL (3.0-4.8); ALT/SGPT 19 U/L (7-56); AST/SGOT 21 U/L (14-36); BLOOD UREA NITROGEN 30 mg/dL (7-21); CALCIUM 9.8 mg/dL (8.4-10.5); GFR NON-AFRICAN AMERICAN > 60
[2018-08-11 10:15] LABS: TROPONIN I < 0.01 ng/mL
--- NOTE | 2018-08-11 10:42 | RAD ---
HISTORY: cp COMPARISON: Chest x-ray performed 11/20/16 TECHNIQUE: Chest, one view. FINDINGS: LUNGS: No focal consolidation. Please note that chest x-ray has limited sensitivity for the detection of pulmonary masses. PLEURA: No significant pleural effusion identified. No definite pneumothorax . CARDIOVASCULAR: Heart size appears within limits. Atherosclerotic calcification the aorta. OSSEOUS STRUCTURES: No acute osseous abnormality identified. VISUALIZED UPPER ABDOMEN: Elevation of the right hemidiaphragm. OTHER FINDINGS: None. IMPRESSION: No focal consolidation.
[2018-08-11 10:51] VITALS: BP 135/85; PULSE 82; RESP 19; O2SAT 99
--- NOTE | 2018-08-11 14:36 | CARD ---
APPROVED REPORT Date of service: 08/11/2018 EKG Measurement Heart [id number] [id number] <Conclusion> Normal sinus rhythm Normal ECG
== END 2018-08-11 10:45 | disposition home or self-care (01) ==
LOC: ED 08:45
DX: M94.0 Chondrocostal junction syndrome [Tietze] (principal); K21.9 Gastro-esophageal reflux disease without esophagitis
CPT/HCPCS: 71045; 80053; 82550; 83615; 83735; 84484; 85025; 85378; 93005; 96374; 99283; J1885

== ENCOUNTER 2018-11-05 10:24 | Outpatient (CLI) | payer OTHER, BC | END 2018-11-05 10:25 | disposition home or self-care (01) | LOC: RAD 10:24 ==